=== PATIENT | female | born 1995 | race American Indian/Alaskan Native ===

== ENCOUNTER 2017-12-12 20:43 | Outpatient (CLI) | payer OTHER ==
[2017-12-13] MEDS ORDERED: KEFLEX500 MG PO (10:45)
== END 2017-12-13 12:30 | disposition home or self-care (01) ==
LOC: OBS/DEL 20:43
DX: O26.893 Other specified pregnancy related conditions, third trimester (principal); Z04.1 Encounter for examination and observation following transport accident; O60.03 Preterm labor without delivery, third trimester; Z34.03 Encounter for supervision of normal first pregnancy, third trimester; V43.92XA Unspecified car occupant injured in collision with other type car in traffic accident, initial encounter; Y93.89 Activity, other specified; Y92.488 Other paved roadways as the place of occurrence of the external cause; Y99.8 Other external cause status

== ENCOUNTER 2018-01-07 16:54 | Inpatient (IN) | payer OTHER ==
[~2018-01-07] VITALS: Ht 162.6 cm; Wt 2.7 kg
[~2018-01-07 16:54] MED LIST: KEFLEX500 MG PO
[2018-01-07] MEDS ORDERED: PRENATABS RX T1 EACH PO (17:37)
[2018-01-11] MEDS ORDERED: NABUMETONE750 MG PO (11:50)
[2018-01-11] MEDS ORDERED: DOCUSATE SODIU100 MG PO (11:50)
[2018-01-11] MEDS ORDERED: ACETAMINOPHEN500 M1 PO (11:50)
== END 2018-01-11 12:21 | DRG 766 ==
LOC: LDR 16:54 → O/R 01-08 13:43 → OB/GYN 01-08 15:44
PROVIDERS: Obstetrics & Gynecology
PROC: 0UB60ZZ Excision of Left Fallopian Tube, Open Approach (ICD-10-PCS; 2018-01-08)
PROC: 3E0P7VZ Introduction of Hormone into Female Reproductive, Via Natural or Artificial Opening (ICD-10-PCS; 2018-01-08)
PROC: 3E033VJ Introduction of Other Hormone into Peripheral Vein, Percutaneous Approach (ICD-10-PCS; 2018-01-08)
PROC: 4A1HXCZ Monitoring of Products of Conception, Cardiac Rate, External Approach (ICD-10-PCS; 2018-01-08)
PROC: 10D00Z1 Extraction of Products of Conception, Low, Open Approach (ICD-10-PCS; principal; 2018-01-08 10:00)
DX: O61.0 Failed medical induction of labor (principal); O99.824 Streptococcus B carrier state complicating childbirth; O13.4 Gestational [pregnancy-induced] hypertension without significant proteinuria, complicating childbirth; Z3A.40 40 weeks gestation of pregnancy; Z37.0 Single live birth; O34.83 Maternal care for other abnormalities of pelvic organs, third trimester